=== PATIENT | male | born 1960 | race Caucasian/White ===

== ENCOUNTER 2022-10-20 09:25 | Outpatient (OUT) | payer MEDICAID, SELFPAY ==
--- NOTE | 2022-10-20 | ECG_ITS ---
[facility] Test Date: 2022-10-20 Pat Name: Maik Colby Department: Room: - Gender: Male [employer]: : 1960 Requested By: CRISTIANO OTOOLE Order Number: [id number] Reading MD: FAIZA TONEY Measurements Intervals [place] Rate: 63 P: 83 MN: 164 QRS: 83 QRSD: 98 T: 72 QT: 391 QTc: 402 Interpretive Statements SINUS RHYTHM No previous ECG available for comparison Electronically Signed On 10-21-2022 6:50:17 EDT by FAIZA TONEY
[2022-10-20 10:05] LABS: Basophils Absolute Auto 0.1 10^3/uL (0.0-0.1); Basophils Percent Auto 0.9 % (0.2-2.0); Eosinophils Absolute Auto 0.2 10^3/uL (0.0-0.7); Eosinophils Percent Auto 2.6 % (0.9-7.0); Hematocrit 46.7 % (42.0-54.0); Hemoglobin 15.9 g/dL (14.0-18.0); Immature Granulocytes Abs Auto 0.02 10^3/uL (0.00-0.03); Immature Granulocytes Pct Auto 0.3 % (0.0-0.5); Lymphocytes Absolute Auto 2.6 10^3/uL (1.2-3.8); Lymphocytes Percent Auto 32.5 % (20.5-60.0); Mean Corpuscular Hemoglobin 31.4 pg (25.9-34.0); Mean Corpuscular Volume 92.1 fL (80.0-94.0); Mean Platelet Volume 8.9 fL (9.5-13.5); Monocytes Absolute Auto 0.7 10^3/uL (0.3-0.8); Monocytes Percent Auto 9.2 % (1.7-12.0); Neutrophils Absolute Auto 4.3 10^3/uL (1.4-6.5); Neutrophils Percent Auto 54.5 % (43.0-75.0); Platelet Count 280 10^3/uL (150-450); Red Blood Count 5.07 10^6/uL (4.70-6.10); Red Cell Distribution Width 12.8 % (11.0-15.0); White Blood Count 7.9 10^3/uL (4.0-11.0)
[2022-10-20 10:36] LABS: Alanine Aminotransferase 23 U/L (16-63); Albumin Level 3.6 g/dL (3.4-5.0); Alkaline Phosphatase 77 U/L (46-116); Aspartate Amino Transferase 17 U/L (15-37); BUN Creatinine Ratio 13.7; Bilirubin Total 0.3 mg/dL (0.2-1.0); Calcium 9.5 mg/dL (8.5-10.1); Carbon Dioxide 25.3 mmol/L (21.0-32.0); Chloride 104 mmol/L (98-107); Estimated GFR (African America >60 (>=60); Estimated GFR (Non-African Ame >60 (>=60); Globulin 3.7 g/dL; Glucose 97 mg/dL (74-106); Potassium 4.3 mmol/L (3.5-5.1); Sodium 139 mmol/L (136-145); Total Protein 7.3 g/dL (6.4-8.2)
[2022-10-20 10:45] LABS: Chol HDL Ratio 5.1; Cholesterol 215 mg/dL (<=200); HDL Cholesterol 42 mg/dL (40-60); Thyroid Stimulating Hormone 1.961 uIU/mL (0.358-3.740); Triglycerides 68 mg/dL (<=150); VLDL CHOLESTEROL 13.6 mg/dL
[2022-10-20 11:15] LABS: Prostate Specific Antigen Scrn 5.12 ng/mL (<=4.00)
== END 2022-10-20 09:26 ==
LOC: LAB 09:30
PROVIDERS: PCP Family Medicine; Visit Provider Family Medicine
DX: Z00.00 Encounter for general adult medical examination without abnormal findings (principal); R07.2 Precordial pain; R53.82 Chronic fatigue, unspecified; Z12.5 Encounter for screening for malignant neoplasm of prostate
CPT/HCPCS: 36415; 80053; 80061; 84443; 85025; 93005; G0103

== ENCOUNTER 2022-10-29 07:50 | Outpatient (OUT) | payer MEDICAID, SELFPAY ==
--- NOTE | 2022-10-29 07:58 | XR_ITS ---
[address] [address] Patient Name: BA URIARTE MRN: [id number] date: 1960 Sex: M Assigned Patient Location: LAB Current Patient Location: LAB Accession/Order Number: [id number] Exam Date: 10/29/2022 08:00 Report Date: 10/29/2022 09:00 At the request of: CATHY STEVENS Procedure: XR abdomen 1V EXAMINATION: XR abdomen 1V HISTORY: Kidney stone N20.0 COMPARISON: No relevant comparison available. FINDINGS: KIDNEY/URETER - RIGHT: No visible renal or ureteral calcifications. KIDNEY/URETER - LEFT: No visible renal or ureteral calcifications. PELVIS: No visible ureteral calcifications. Any visible calcifications favor phleboliths. BOWEL: No abnormal dilation or deviation. BONES: No acute abnormality. OTHER: Calcifications left sacrum stable. No abnormal gaseous collections. IMPRESSION: No new urinary tract calculi Electronically authenticated by: DELROY COLON Date: 10/29/2022 09:00
[2022-10-29 09:28] LABS: Prostate Specific Antigen Dx 4.54 ng/mL (<=4.00)
== END 2022-10-29 07:51 | disposition home or self-care (01) ==
LOC: LAB 07:52
PROVIDERS: PCP Family Medicine
DX: N20.0 Calculus of kidney (principal)
CPT/HCPCS: 36415; 74018; 84153

== ENCOUNTER 2022-12-11 10:47 | Emergency (ER) | payer MEDICAID, SELFPAY ==
[2022-12-11 10:57] VITALS: BP 155/95; PULSE 79; RESP 24; TEMP 37; O2SAT 98; BMI 21.1
--- NOTE | 2022-12-11 11:07 | XR_ITS ---
The [address] [address] Patient Name: BA URIARTE MRN: [id number] date: 1960 Sex: M Assigned Patient Location: ER Current Patient Location: ER Accession/Order Number: [id number] Exam Date: 12/11/2022 11:14 Report Date: 12/11/2022 11:41 At the request of: NELA INIGUEZ Procedure: XR ribs LT min 3V w CXR1V EXAMINATION: XR ribs LT min 3V w CXR1V HISTORY: pain, fall ; acute left rib pain after falling COMPARISON: CT chest 01/19/2020 FINDINGS: LUNGS: Hyperexpanded lungs. Stable calcified granulomas within right mid and lower lung. PLEURA: No pneumothorax, effusion, or pleural thickening. MEDIASTINUM: No visible mass or adenopathy. CARDIAC: No cardiomegaly or cardiac silhouette abnormality. RIBS: No fracture or bone lesion. OTHER: Negative. XR/XR ribs LT min 3V w CXR1V IMPRESSION: 1. No appreciable left rib fracture or acute cardiopulmonary process. Electronically authenticated by: ANGELES CEBALLOS Date: 12/11/2022 11:41
--- NOTE | 2022-12-11 11:07 | ED.GENADUL1 ---
HPI - General Adult General Chief complaint: Fall Stated complaint: FALL Time Seen by Provider: 12/11/22 11:07 Source: patient Mode of arrival: walk-in History of Present Illness HPI narrative: Patient says emergency department complaining of left rib pain. Patient states he fell off 4 feet off a wagon onto his left side. Did not hit his head or having loss of conscious. He denies any headache, or neck pain. He does not take any anticoagulants. He states he is having pain to the left front and back of the left ribs and pain is worse when he takes a deep breath. Did not have any previous symptoms before the fall. Patient denies any alcohol. He has not taken anything for pain. Denies any fever, chills, or cough. He denies any abdominal pain. He denies any nausea, vomiting, diarrhea, constipation. Denies any hematuria, dysuria. He denies any paresthesias, or weakness of his upper or lower extremities. Denies any other injury. Related Data Previous Rx's Medication Instructions Recorded cyclobenzaprine 10 mg tablet 10 mg PO TID PRN muscle spasm 5 12/11/22 days #14 tabs hydrocodone 5 mg-acetaminophen 325 1 tab PO Q8H PRN pain 5 days #20 12/11/22 mg tablet tabs Allergies Allergy/AdvReac Type Severity Reaction Status Date / Time No Known Drug Allergies Allergy Verified 12/11/22 10:57 Review of Systems ROS Status of ROS 10 or more systems reviewed and unremarkable except as noted in history and below PFSH PFSH Social History Smoking status: Current every day smoker Exam Narrative Exam Narrative: Nurses notes and vital signs reviewed and patient is not hypoxic. General: Nontoxic,appears in pain, and in no apparent distress. Skin: Warm, dry, no pallor noted. No Rash Head: Normocephalic, atraumatic. Neck: Supple, non-tender. Eye: Pupils are equal, round and EOMI. No scleral icterus. Ears, Nose, Mouth, and Throat: TM clear, no posterior oropharynx erythema or nasal mucosal hypertrophy, uvula is mid-line Oral mucosa is moist Cardiovascular: Regular Rate and Rhythm without murmur, gallop or rub. Respiratory: No accessory muscle use or respiratory distress. Lungs are clear to auscultation, no wheezing, rales or rhonchi Chest Wall: Left lateral posterior ribs 8-9 tenderness to palpation, no crepitance. There are no step-offs. No ecchymosis noted. Back: No midline thoracic or lumbar vertebral tenderness. No CVA tenderness Musculoskeletal: normal ROM, no calf or popliteal tenderness, no lower extremity edema/swelling GI: Abdomen is soft, non-distended. Normal bowel sounds. No masses appreciated. No tenderness to palpation. No rebound, guarding, or rigidity noted. Neurological: A&O x4. No cranial nerve dysfunction observed. No truncal ataxia. Moves all extremities. Sensation intact. Psychiatric: Cooperative and interactive. Normal mood and affect. Constitutional Vital Signs, click to edit/add: Last Vital Signs Temp 98.6 F 12/11/22 10:57 Pulse 79 12/11/22 10:57 Resp 24 12/11/22 10:57 BP 155/95 H 12/11/22 10:57 Pulse Ox 98 12/11/22 11:18 O2 Del Method Room Air 12/11/22 11:18 Course Vital Signs Vital signs: Vital Signs Temperature 98.6 F 12/11/22 10:57 Pulse Rate 79 12/11/22 10:57 Respiratory Rate 24 12/11/22 10:57 Blood Pressure 155/95 H 12/11/22 10:57 Pulse Oximetry 98 12/11/22 10:57 Oxygen Delivery Method Room Air 12/11/22 10:57 Temperature 98.6 F 12/11/22 10:57 Pulse Rate 79 12/11/22 10:57 Respiratory Rate 24 12/11/22 10:57 Blood Pressure 155/95 H 12/11/22 10:57 Pulse Oximetry 98 12/11/22 11:18 Oxygen Delivery Method Room Air 12/11/22 11:18 Medical Decision Making [facility] Narrative Medical decision making narrative: She was given 2 mg of Dilaudid IV. He was given Zofran 4mg. x-rays of the left ribs are unremarkable. Patient does not have anything acute. Patient still in significant amount of pain and I will still treat him as a no code rib fracture. The patient does not have a pneumothorax. WAS ordered. He is given a prescription for [place]. Patient does not have any abdominal pain, abdomen is benign and nonsurgical. At this time the patient is without objective evidence of an acute process requiring hospitalization or inpatient management. The patient has remained hemodynamically stable. No additional indication for emergent studies at this time. I answered all questions. Discussed discharge instructions including standard anticipatory guidance and what should prompt a return to the emergency department, including if they get worse are not getting better or develops any new or concerning symptoms. I've given them specific time frame in which to follow-up, and who to follow-up with. The patient demonstrates understanding. Patient is nontoxic and stable for discharge with outpatient follow-up. This note was created with the assistance of a speech recognition program. Although the intention is to generate documents that actually reflects the content of the visit, no guarantees can be provided that every mistake has been identified and corrected by editing. Lab Data Lab results reviewed: Yes I reviewed the patient's lab results Discharge Plan Discharge Chief Complaint: Fall Clinical Impression: Left rib fracture Patient Disposition: Home, Self-Care Time of Disposition Decision: 12:47 Condition: Good Mode of Transportation: Private Vehicle Prescriptions / Home Meds: New hydrocodone-acetaminophen 5-325 mg tablet 1 tab PO Q8H PRN (Reason: pain) 5 Days Qty: 20 0RF cyclobenzaprine 10 mg tablet 10 mg PO TID PRN (Reason: muscle spasm) 5 Days Qty: 14 0RF Instructions: Rib Fracture (ED) Stand Alone Forms: Portal Instructions Referrals: Sandra Willingham MD [Primary Care Provider] - 1 week Discharge Date/Time: 12/11/22 13:04
[2022-12-11 11:18] VITALS: O2SAT 98
[2022-12-11] MEDS: ONDANSETRON PF 4 MG/2 ML VIAL IV (11:20)
[2022-12-11] MEDS: HYDROMORPHONE HCL 2 MG/ML VIAL 1 MG IV (11:20)
[2022-12-11] MEDS: HYDROMORPHONE HCL 0.5 MG/0.5 ML SYRINGE 1 MG IV (12:19)
== END 2022-12-11 13:04 | disposition home or self-care (01) ==
PROVIDERS: Emergency Provider Emergency Medicine; PCP Family Medicine
DX: S22.32XA Fracture of one rib, left side, initial encounter for closed fracture (principal); W17.89XA Other fall from one level to another, initial encounter; F17.210 Nicotine dependence, cigarettes, uncomplicated
CPT/HCPCS: 71101; 94667; 96374; 96375; 96376; 99284; J1170